=== PATIENT | male | born 1965 | race Caucasian/White ===

== ENCOUNTER 2017-06-04 08:30 | Emergency (ER) | payer OTHER ==
[~2017-06-04] VITALS: Ht 177.8 cm; Wt 80.0 kg
[2017-06-04 08:44] VITALS: TEMP 36.7; Ht 177.8 cm; Wt 80.0 kg
[2017-06-04] MEDS ORDERED: MoRPHine SULFATE 4 MG/ML 1 ML CARP\\VIAL IV STA (08:53)
[2017-06-04] MEDS ORDERED: ONDANSETRON INJ 2 MG/ML 2 ML VIAL IV STA ×2 (08:53→10:19)
[2017-06-04] MEDS ORDERED: DIPHTHERIA/TETANUS/PERTUSSIS 0.5 ML SYR/VIAL IM. ONE (09:00)
[2017-06-04 09:24] LABS: BASO % 0.2 %; BASO ABS # 0.01 K/uL (0-0.2); EOS % 3.6 %; EOS ABS # 0.19 K/uL (0-0.5); HEMATOCRIT 39.8 % (42-52); HEMOGLOBIN 12.9 g/dL (14.0-18.0); LYMPH % 32.8 %; LYMPH ABS # 1.71 K/uL (1.2-3.4); MEAN CELL VOLUME 62.9 fL (80-100); MEAN CORPUSCULAR HEMOGLOBIN 20.4 pg (25-34); MEAN CORPUSCULAR HGB CONC 32.4 g/dl (32-36); MONO % 9.4 %; MONO ABS # 0.49 K/uL (0.11-0.59); NEUT ABS # 2.81 K/uL (1.4-6.5); PLATELET COUNT 198 K/uL (130-400); RED CELL DISTRIBUTION WIDTH CV 14.7 % (11.5-14.5); RED CELL DISTRIBUTION WIDTH SD 33.1 fL (36.4-46.3); WHITE BLOOD COUNT 5.21 K/uL (4.8-10.8)
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
[2017-06-04 09:40] LABS: CALCIUM 8.9 mg/dl (8.5-10.1); CREATININE 0.96 mg/dl (0.60-1.40); POTASSIUM 3.7 mmol/L (3.5-5.1)
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
[2017-06-04 11:03] VITALS: BP 122/76; PULSE 94; O2SAT 96
[2017-06-04] MEDS ORDERED: HYDROCODONE/ACETAMIN 5/325MG TAB PO STA (11:10)
[2017-06-04] MEDS ORDERED: TRAM-453 PO (11:16)
== END 2017-06-04 12:07 | disposition home or self-care (01) ==
LOC: EDBD 08:30 → C.EDB 08:31
DX: M25.511 Pain in right shoulder (principal); G44.319 Acute post-traumatic headache, not intractable; S60.512A Abrasion of left hand, initial encounter; V43.52XA Car driver injured in collision with other type car in traffic accident, initial encounter; D64.9 Anemia, unspecified; Z23 Encounter for immunization